=== PATIENT | female | born 1990 | race Caucasian/White ===

== ENCOUNTER 2021-09-14 12:25 | Emergency (ER) | payer OTHER ==
[~2021-09-14] VITALS: Ht 157.5 cm; Wt 70.0 kg
[2021-09-14 12:43] VITALS: BP 123/70
[2021-09-14] MEDS ORDERED: KETOROLAC 15 MG/ML VIAL. IVP ONE (13:00)
[2021-09-14] MEDS ORDERED: ONDANSETRON PF 4 MG/2 ML VIAL. IVP ONE ×2 (13:00→14:45)
[2021-09-14] MEDS ORDERED: IV RINGERS SOLUTION,LACTATED 1,000 ML IV ONE (13:00)
[2021-09-14 13:14] LABS: BASO # 0.1 x10^3/uL (0.0-0.2); BASO % 1 % (0-3); EOS # 0.1 x10^3/uL (0.0-0.7); EOS % 1 % (0-3); HEMATOCRIT 43.6 % (36.0-47.0); HEMOGLOBIN 14.8 g/dL (12.0-15.5); LYMPH # 1.8 x10^3/uL (1.0-4.8); LYMPH % 13 % (24-48); MEAN CORPUSCULAR HEMOGLOBIN 29 pg (25-35); MEAN CORPUSCULAR HGB CONC 34 g/dL (31-37); MEAN CORPUSCULAR VOLUME 86 fL (79-100); MONO # 0.8 x10^3/uL (0.0-1.1); MONO % 6 % (0-9); NEUT # 11.1 x10^3uL (1.8-7.7); NEUT % 80 % (31-73); PLATELET COUNT 158 x10^3/uL (140-400); RED CELL DISTRIBUTION WIDTH 12.8 % (11.5-14.5)
[2021-09-14 13:29] LABS: ALBUMIN 3.4 g/dL (3.4-5.0); ALBUMIN/GLOBULIN RATIO 1.1 (1.0-1.7); CREATININE 0.9 mg/dL (0.6-1.0); GFR 72.1; MAGNESIUM 2.2 mg/dL (1.8-2.4); POTASSIUM 3.8 mmol/L (3.5-5.1); TOTAL BILIRUBIN 1.2 mg/dL (0.2-1.0); TOTAL PROTEIN 6.6 g/dL (6.4-8.2)
--- NOTE | 2021-09-14 13:39 | RAD ---
EXAMINATION: CT abdomen and pelvis without IV contrast. INDICATION:31 years, Female, Central abdominal pain. TECHNIQUE: Axial CT images of the abdomen and pelvis were obtained. Coronal and sagittal reformatted performed. COMPARISON: None. Exposure: One or more of the following individualized dose reduction techniques were utilized for thi s examination: 1. Automated exposure control 2. Adjustment of the mA and/or kV according to patient size 3. Use of iterative reconstruction technique. FINDINGS: LOWER CHEST: Unremarkable. ABDOMEN/PELVIS: Within the limitation of noncontrast exam, No bowel obstruction. Borderline thickened appendix with minimal periappendiceal fat stranding. Appen yanira diameter measures up to 8 mm. Ill-defined fat stranding with prominent mesenteric lymph nodes in the right abdomen. Liver, spleen, biliary ducts, pancreas, adrenal glands and kidneys are unremarkable. Cholecystectomy. Normal caliber abdominal aorta. No lymphadenopathy by size criteria. No pneumoperitoneum. Unremarkab le uterus. Decompressed urinary bladder which limits evaluation. Trace amount of pelvic free fluid, l ikely physiologic. MUSCULOSKELETAL STRUCTURES: No acute osseous process. IMPRESSION: 1. Borderline thickened appendix with minimal periappendiceal fat stranding. Correlate for possible early acute appendicitis. 2. Ill-defined fat stranding with prominent mesenteric lymph nodes in the right abdomen, nonspecific , but can be seen with mesenteric adenitis. Electronically signed by: Ivonne Orozco MD (09/14/2021 1:36 PM) [facility]
--- NOTE | 2021-09-14 13:58 | PHYS DOC ---
Past History Past Medical History: No Pertinent History Past Surgical History: Cholecystectomy, General Adult EDM: Chief Complaint: GI PROBLEM HPI: HPI: Patient is a 31 year old female who presents with right lower quadrant abdominal pain and nausea. Patient states that yesterday, she had central abdominal pain that was not relieved by passing bowel movement. She reports associated nausea without vomiting and a low-grade fever. Today, her pain is worse and is moved to the right lower quadrant. She denies constipation or diarrhea. Patient has no other complaints at this time. Review of Systems: Review of Systems: Constitutional: See HPI Eyes: Denies change in visual acuity, visual field deficits or discharge HENT: Denies ear pain, nasal congestion or sore throat Respiratory: Denies cough or shortness of breath Cardiovascular: Denies chest pain, palpitations or edema GI: See HPI : Denies dysuria or hematuria Musculoskeletal: Denies back pain or joint pain Integument: Denies rash or other skin lesion Neurologic: Denies headache, focal weakness or sensory changes Current Medications: Current Meds: Current Medications Medications (Trade) Dose Ordered Sig/Day Route PRN Reason Start Time Stop Time Status Last Admin Dose Admin Lactated Ringer's 1,000 ml @ 1,000 mls/hr 1X ONCE IV 09/14/21 13:00 09/14/21 13:59 DC 09/14/21 13:42 Ondansetron HCl (Zofran) 4 mg 1X ONCE IVP 09/14/21 13:00 09/14/21 13:24 DC 09/14/21 13:42 Ketorolac Tromethamine (Toradol 15mg Vial) 15 mg 1X ONCE IVP 09/14/21 13:00 09/14/21 13:24 DC 09/14/21 13:42 Piperacillin Sod/ Tazobactam Sod 3.375 gm/Sodium Chloride 50 ml @ 100 mls/hr 1X ONCE IV 09/14/21 14:15 09/14/21 14:44 DC 09/14/21 14:31 Morphine Sulfate (Morphine 4mg Syringe) 4 mg 1X ONCE IV 09/14/21 14:15 09/14/21 14:16 DC 09/14/21 14:33 Ondansetron HCl (Zofran) 4 mg 1X ONCE IVP 09/14/21 14:45 09/14/21 14:46 DC 09/14/21 14:45 Allergies: Allergies: Allergies Coded Allergies Type Severity Reaction Last Updated Verified No Known Drug Allergies 09/14/21 No Physical Exam: PE: Constitutional: Well developed, well nourished, no acute distress, non-toxic appearance. HENT: Normocephalic, atraumatic, bilateral external ears normal, nose normal. Eyes: EOMI, conjunctiva normal, no discharge. Neck: Normal range of motion, no stridor. Abdomen: Bowel sounds normal, soft, McBurney's point tenderness, negative Rovsing sign, no masses, no pulsatile masses. Skin: Warm, dry, no erythema, no rash. Extremities: No cyanosis, no clubbing, ROM intact, no edema. Neurologic: Alert and oriented x4, normal motor function, normal sensory function, no focal deficits noted. Current Patient Data: Labs: Laboratory Tests Test 09/14/21 12:13 09/14/21 12:50 Bedside Urine HCG, Qualitative hcg negative (Negative) White Blood Count 14.0 x10^3/uL (4.0-11.0) Red Blood Count 5.10 x10^6/uL (3.50-5.40) Hemoglobin 14.8 g/dL (12.0-15.5) Hematocrit 43.6 % (36.0-47.0) Mean Corpuscular Volume 86 fL (79-100) Mean Corpuscular Hemoglobin 29 pg (25-35) Mean Corpuscular Hemoglobin Concent 34 g/dL (31-37) Red Cell Distribution Width 12.8 % (11.5-14.5) Platelet Count 158 x10^3/uL (140-400) Neutrophils (%) (Auto) 80 % (31-73) Lymphocytes (%) (Auto) 13 % (24-48) Monocytes (%) (Auto) 6 % (0-9) Eosinophils (%) (Auto) 1 % (0-3) Basophils (%) (Auto) 1 % (0-3) Neutrophils # (Auto) 11.1 x10^3uL (1.8-7.7) Lymphocytes # (Auto) 1.8 x10^3/uL (1.0-4.8) Monocytes # (Auto) 0.8 x10^3/uL (0.0-1.1) Eosinophils # (Auto) 0.1 x10^3/uL (0.0-0.7) Basophils # (Auto) 0.1 x10^3/uL (0.0-0.2) Urine Collection Type Unknown Urine Color Yellow Urine Clarity Clear Urine pH 7.5 Urine Specific [place] 1.015 Urine Protein Neg (NEG-TRACE) Urine Glucose (UA) Neg mg/dL (NEG) Urine Ketones (Stick) 15 mg/dL (NEG) Urine Blood Neg (NEG) Urine Nitrite Neg (NEG) Urine Bilirubin Neg (NEG) Urine Urobilinogen Dipstick 0.2 mg/dL (0.2 mg/dL) Urine Leukocyte Esterase Neg (NEG) Urine RBC 0 /HPF (0-2) Urine WBC 0 /HPF (0-4) Urine Squamous Epithelial Cells Mod /LPF Urine Bacteria 0 /HPF (0-FEW) Urine Mucus Slight /LPF Sodium Level 138 mmol/L (136-145) Potassium Level 3.8 mmol/L (3.5-5.1) Chloride Level 101 mmol/L (98-107) Carbon Dioxide Level 28 mmol/L (21-32) Anion Gap 9 (6-14) Blood Urea Nitrogen 10 mg/dL (7-20) Creatinine 0.9 mg/dL (0.6-1.0) Estimated GFR (Cockcroft-Gault) 72.1 BUN/Creatinine Ratio 11 (6-20) Glucose Level 92 mg/dL (70-99) Calcium Level 9.0 mg/dL (8.5-10.1) Magnesium Level 2.2 mg/dL (1.8-2.4) Total Bilirubin 1.2 mg/dL (0.2-1.0) Aspartate Amino Transf (AST/SGOT) 31 U/L (15-37) Alanine Aminotransferase (ALT/SGPT) 94 U/L (14-59) Alkaline Phosphatase 76 U/L (46-116) Total Protein 6.6 g/dL (6.4-8.2) Albumin 3.4 g/dL (3.4-5.0) Albumin/Globulin Ratio 1.1 (1.0-1.7) Lipase 115 U/L (73-393) Vital Signs: Vital Signs Date Time Temp Pulse Resp B/P (MAP) Pulse Ox O2 Delivery O2 Flow Rate FiO2 09/14/21 14:33 18 Room Air 09/14/21 12:43 98.7 99 22 123/70 (87) 98 Room Air Radiology/Procedures: Radiology/Procedures: PROCEDURE: CT ABDOMEN PELVIS WO CONTRAST EXAMINATION: CT abdomen and pelvis without IV contrast. INDICATION:31 years, Female, Central abdominal pain. TECHNIQUE: Axial CT images of the abdomen and pelvis were obtained. Coronal and sagittal reformatted performed. COMPARISON: None. Exposure: One or more of the following individualized dose reduction techniques were utilized for this examination: 1. Automated exposure control 2. Adjustment of the mA and/or kV according to patient size 3. Use of iterative reconstruction technique. FINDINGS: LOWER CHEST: Unremarkable. ABDOMEN/PELVIS: Within the limitation of noncontrast exam, No bowel obstruction. Borderline thickened appendix with minimal periappendiceal fat stranding. Appendix diameter measures up to 8 mm. Ill-defined fat stranding with prominent mesenteric lymph nodes in the right abdomen. Liver, spleen, biliary ducts, pancreas, adrenal glands and kidneys are unremarkable. Cholecystectomy. Normal caliber abdominal aorta. No lymphadenopathy by size criteria. No pneumoperitoneum. Unremarkable uterus. Decompressed urinary bladder which limits evaluation. Trace amount of pelvic free fluid, likely physiologic. MUSCULOSKELETAL STRUCTURES: No acute osseous process. IMPRESSION: 1. Borderline thickened appendix with minimal periappendiceal fat stranding. Correlate for possible early acute appendicitis. 2. Ill-defined fat stranding with prominent mesenteric lymph nodes in the right abdomen, nonspecific, but can be seen with mesenteric adenitis. Electronically signed by: Ivonne Orozco MD (09/14/2021 1:36 PM) [facility] Heart Score: C/O Chest Pain: No Course & Med Decision Making: Course & Med Decision Making Pertinent Labs and Imaging studies reviewed. (See chart for details) Patient is a 31-year-old female with classic presentation for acute appendicitis. Work-up today reveals white count of 14 with neutrophilia, early appendicitis seen on CT. Dr. Ingram, general surgery, at [facility] was contacted and discussed patient case. He request admission to medicine, stat COVID-19 rapid test and urgent transport to [facility] for appendectomy. Dr. Arce, hospitalist, gladly accepts patient. Patient was hemodynamically stable at time of transfer. Emil Disclaimer: Emil Disclaimer: This electronic medical record was generated, in whole or in part, using a voice recognition dictation system. Departure Departure: Impression: Primary Impression: Acute appendicitis Qualified Codes: K35.30 - Acute appendicitis with localized peritonitis, without perforation or gangrene Disposition: 02 SHORT TERM HOSPITAL Condition: GUARDED MG OLIVEROS September 14, 2021 13:58
[2021-09-14 13:59] LABS: BACTERIA,URINE 0 /HPF (0-FEW); CLARITY,URINE CLEAR; COLOR,URINE YELLOW; GLUCOSE,URINE NEG (NEG); NITRITE,URINE NEG (NEG); RBC,URINE 0 /HPF (0-2); SQUAMOUS EPITHELIAL CELL,UR MOD /LPF; UROBILINOGEN,URINE 0.2 mg/dL (0.2 mg/dL); WBC,URINE 0 /HPF (0-4)
[2021-09-14] MEDS ORDERED: MORPHINE SULFATE 4 MG/ML DISP.SYRIN. IV ONE (14:15)
[2021-09-14] MEDS ORDERED: PIPERACILLIN/TAZOBACTAM 3.375 GM in IV NORMAL SALINE 50ML 50 ML IV ONE (14:15)
[2021-09-14] MEDS ORDERED: PIPERACILLIN/TAZOBACTAM 3.375 GM VIAL IV ONE (14:24)
[2021-09-14] MEDS ORDERED: IV NORMAL SALINE 50ML 50 ML ONE (14:24)
== END 2021-09-14 16:04 | disposition short-term general hospital (02) ==
LOC: ER 12:25
DX: K35.30 Acute appendicitis with localized peritonitis, without perforation or gangrene (principal); Z20.822 Contact with and (suspected) exposure to COVID-19; Z90.49 Acquired absence of other specified parts of digestive tract; Z98.890 Other specified postprocedural states
CPT/HCPCS: 36415; 74176; 80053; 81001; 81025; 83690; 83735; 85025; 87426; 96361; 96365; 96375; 96376; 99285; J1885; J2270; J2405; J2543; J7120

== ENCOUNTER 2021-09-17 19:56 | Emergency (ER) | payer OTHER ==
[~2021-09-17] VITALS: Ht 157.5 cm; Wt 68.6 kg
--- NOTE | 2021-09-17 20:27 | PHYS DOC ---
Past History Past Medical History: No Pertinent History Past Surgical History: Cholecystectomy, Alcohol Use: None Adult General HPI HPI Patient is a 31-year-old female who presents emergency department with abdominal pain status post 3 days appendicitis, 6 out of 10, dull and achy in nature on the right side. States he had some mild nausea and watery diarrhea. States she called her surgeon and was directed to the emergency department. States she has been able to drink some fluids and eat a little bit though. States she does have hydrocodone at home but seems to make her nauseous so she only took 1 yesterday. Review of Systems Review of Systems Review of systems otherwise unremarkable except noted in HPI Allergies Allergies Allergies Coded Allergies Type Severity Reaction Last Updated Verified No Known Drug Allergies 09/14/21 No Physical Exam Physical Exam Constitutional: Well developed, well nourished, no acute distress, non-toxic appearance. [] HENT: Normocephalic, atraumatic, bilateral external ears normal, oropharynx moist, no oral exudates, nose normal. [] Eyes: conjunctiva normal, no discharge. [] Neck: Normal range of motion, no tenderness, supple, no stridor. [] Cardiovascular:Heart rate regular rhythm, no murmur [] Lungs & Thorax: Bilateral breath sounds clear to auscultation [] Abdomen: soft, right lower quadrant tenderness, no rebound or guarding, mild distention, no masses, no pulsatile masses. [] Skin: Warm, dry, no erythema, no rash. [] Back: no CVA tenderness. [] Extremities: No tenderness, no cyanosis, no clubbing, ROM intact, no edema. [] Neurologic: Alert and oriented X 3, normal motor function, normal sensory function, no focal deficits noted. [] Psychologic: Affect normal, judgement normal, mood normal. [] EKG EKG [] Radiology/Procedures Radiology/Procedures [] Heart Score C/O Chest Pain: No Risk Factors: Risk Factors: DM, Current or recent (<one month) smoker, HTN, HLP, family history of CAD, obesity. Risk Scores: Risk Factors: DM, Current or recent (<one month) smoker, HTN, HLP, family history of CAD, obesity. Course & Med Decision Making Course & Med Decision Making Patient is a 31-year-old female status post 3 days appendectomy who presents with abdominal pain, nausea and diarrhea Vital signs notable for borderline sinus tachycardia. Physical exam noted above. IV access established. Given fluid, pain and nausea medicine Laboratory analysis notable for leukocytosis. CT notable for a probable colitis at the hepatic flexure. Started on antibiotics in the ED. Discussed all findings with patient. Discussed pain management at home including her hydrocodone, and nausea management with ODT Zofran. Discussed diet and hydration. 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 Advised to call both her primary care physician and surgeon first thing Monday to update on ED visit and set up follow-ups. Gave strict return precautions to the ED. Patient grateful, verbalized understanding and agreed with plan of discharge Emil Disclaimer Emil Disclaimer This electronic medical record was generated, in whole or in part, using a voice recognition dictation system. Departure Departure: Impression: Primary Impression: Abdominal pain Additional Impressions: Nausea Colitis Disposition: HOME / SELF CARE / HOMELESS Condition: STABLE Referrals: PCP,UNKNOWN (PCP) JUNIOR SAMSON Patient Instructions: Colitis Additional Instructions: Thank you for coming into the emergency department tonight and allowing us to take care of you. Please read the attached information carefully to go over things we discussed. Please take your antibiotics as prescribed and until gone. Please adjust your diet, to be more light and clear and less heavy as we discussed including lots of fluids. When taking your medicines, take your nausea medicine first, have a small bite to eat such as a couple of saltine crackers and then take your pain medicine which can help with the nausea after the pain medicine. Please follow-up with both your primary care physician and your surgeon on Monday to update on your ED visit and set up follow-up visits. Please, to the emergency department immediately with new or concerning symptoms as we discussed. Scripts Ondansetron (ONDANSETRON ODT) 4 Mg Tab.rapdis 1 TAB PO PRN Q6-8HRS for N/V for 7 Days, #30 TAB Prov: DEVAN XIAO MD 09/18/21 Ciprofloxacin Hcl (CIPRO) 500 Mg Tablet 1 TAB PO BID for colitis for 7 Days, #13 TAB 0 Refills Prov: DEVAN XIAO MD 09/18/21 Metronidazole (METRONIDAZOLE) 500 Mg Tablet 1 TAB PO TID for colitis for 10 Days, #29 TAB 0 Refills Prov: DEVAN XIAO MD 09/18/21 Problem Qualifiers DEVAN XIAO MD September 17, 2021 20:27
[2021-09-17] MEDS: ONDANSETRON PF 4 MG/2 ML VIAL. IVP ONE (21:19)
[2021-09-17] MEDS: MORPHINE SULFATE 4 MG/ML DISP.SYRIN. IV ONE (21:19)
[2021-09-17] MEDS: RINGERS LACTATED IV ONE (21:30)
[2021-09-17 21:32] LABS: BASO # 0.1 x10^3/uL (0.0-0.2); BASO % 1 % (0-3); EOS # 0.3 x10^3/uL (0.0-0.7); EOS % 1 % (0-3); HEMATOCRIT 43.3 % (36.0-47.0); HEMOGLOBIN 14.6 g/dL (12.0-15.5); LYMPH # 2.8 x10^3/uL (1.0-4.8); LYMPH % 16 % (24-48); MEAN CORPUSCULAR HEMOGLOBIN 29 pg (25-35); MEAN CORPUSCULAR HGB CONC 34 g/dL (31-37); MEAN CORPUSCULAR VOLUME 87 fL (79-100); MONO # 1.4 x10^3/uL (0.0-1.1); MONO % 8 % (0-9); NEUT # 13.2 x10^3uL (1.8-7.7); NEUT % 74 % (31-73); PLATELET COUNT 186 x10^3/uL (140-400); RED BLOOD COUNT 4.99 x10^6/uL (3.50-5.40); RED CELL DISTRIBUTION WIDTH 13.5 % (11.5-14.5); WHITE BLOOD COUNT 17.8 x10^3/uL (4.0-11.0)
[2021-09-17 21:39] LABS: CLARITY,URINE CLEAR; COLOR,URINE YELLOW; GLUCOSE,URINE NEG (NEG)
[2021-09-17 21:40] LABS: BACTERIA,URINE 0 /HPF (0-FEW); NITRITE,URINE NEG (NEG); RBC,URINE 0 /HPF (0-2); SQUAMOUS EPITHELIAL CELL,UR MANY /LPF; UROBILINOGEN,URINE 0.2 mg/dL (0.2 mg/dL); WBC,URINE 0 /HPF (0-4)
[2021-09-17 21:46] LABS: CALCIUM 9.1 mg/dL (8.5-10.1); CREATININE 0.9 mg/dL (0.6-1.0); GFR 72.1; POTASSIUM 3.5 mmol/L (3.5-5.1)
[2021-09-17 21:49] LABS: % EOS 2 % (0-5); % LYMPHS 23 % (24-48); % MONOS 8 % (0-10); % SEGS 67 % (35-66); PLT ESTIMATE ADEQUATE (ADEQUATE)
[2021-09-17 21:50] LABS: ALBUMIN 3.3 g/dL (3.4-5.0); TOTAL BILIRUBIN 0.4 mg/dL (0.2-1.0); TOTAL PROTEIN 6.7 g/dL (6.4-8.2)
--- NOTE | 2021-09-17 22:51 | RAD ---
Exam: CT of abdomen and pelvis without contrast INDICATION: Right lower quadrant pain, nausea vomiting diarrhea TECHNIQUE: Sequential axial images through the abdomen and pelvis obtained without IV contrast. Sagit kamilla and coronal reformatted images were reconstructed from the axial data and reviewed. Exposure: One or more of the following in the visualized dose reduction techniques were utilized for this examination: 1. Automated exposure control 2. Adjustment of the MA and/or KV according to patient size 3. Use of iterative of reconstructive technique Comparisons: 09/14/2021 FINDINGS: Heart size is normal. No pericardial effusion. Visualized lung bases are clear. No pleural effusion. Evaluation solid organs limited secondary to noncontrast technique. Liver, spleen, pancreas and adrenals are unremarkable. Gallbladder is absent. No perinephric inflammation or hydronephrosis. No renal or ureteral calculi are identified. Bladder is decompressed not well evaluated. Uterus not enlarged. No abnormal adnexal mass. Moderate amount of stool noted at the colon. Diverticulosis sigmoid colon. There is mild wall thicken ing at the hepatic flexure of the colon with mild adjacent fat stranding. Small bowel is unremarkable . No free intra-abdominal air or fluid. Appendix is not identified. Abdominal aorta has a normal course and caliber. No enlarged intra-abdominal lymph nodes are identified. No suspicious osseous lesions or acute fractures. IMPRESSION: Short segment inflammation at the hepatic flexure of the colon, may be colitis. Colonoscopy posttreat ment to ensure no underlying neoplasm is recommended. Electronically signed by: Eva Dang MD (09/17/2021 10:49 PM) [facility]
[2021-09-18] MEDS: metroNIDAZOLE 500 MG TABLET PO ONE (00:04)
[2021-09-18] MEDS: CIPROFLOXACIN HCL 500 MG TABLET PO ONE (00:04)
[2021-09-18] MEDS: ONDANSETRON PF 4 MG/2 ML VIAL. IVP ONE (00:05)
[2021-09-18] MEDS: DICYCLOMINE HCL 20 MG TABLET PO ONE (00:05)
[2021-09-18] MEDS ORDERED: METR-34 PO (00:06)
[2021-09-18] MEDS ORDERED: CIPR500T94 PO (00:06)
[2021-09-18] MEDS ORDERED: ONDA4TAB12 PO (00:06)
[2021-09-18 00:15] VITALS: BP 123/72
[2021-09-18] MEDS: ONDANSETRON 4MG ODT 4TABLET STARTPACK. PO ONE ×2 (00:15)
[2021-09-18] MEDS ORDERED: HYDR-2155 PO (07:26)
[2021-09-18] MEDS ORDERED: IBUP400T18 PO (07:26)
== END 2021-09-18 00:20 | disposition home or self-care (01) ==
LOC: ER 19:56
DX: K52.9 Noninfective gastroenteritis and colitis, unspecified (principal); Z90.49 Acquired absence of other specified parts of digestive tract; Z98.890 Other specified postprocedural states
CPT/HCPCS: 36415; 74176; 80053; 81001; 81025; 83605; 83690; 85007; 85025; 96361; 96374; 96375; 96376; 99285; J2270; J2405; J7120; Q0162